=== PATIENT | male | born 1950 ===

== ENCOUNTER 2016-10-31 07:25 | Inpatient (IN) | payer MEDICARE ==
[2016-10-30 09:02] VITALS: BMI 38.3
[2016-10-31] MEDS ORDERED: Neostigmine Methylsulfate 2 MG/2 ML ML IV ONE (07:46)
[2016-10-31] MEDS ORDERED: Lidocaine Hydrochloride 5 ML INJ ONE (07:46)
[2016-10-31] MEDS ORDERED: Midazolam 2 MG/2 ML VIAL ONE (07:46)
[2016-10-31] MEDS ORDERED: Propofol 10 mg/ml Inj (20 ML) ONE (07:46)
[2016-10-31] MEDS ORDERED: Rocuronium 10 mg/ml (5 ml) ONE ×2 (07:47→10:34)
[2016-10-31] MEDS ORDERED: Sodium Chloride 0.9% 20 ML IV ONE (08:21)
[2016-10-31] MEDS ORDERED: Thrombin Topical 5,000 IU Spray Kit ONE (08:22)
[2016-10-31] MEDS ORDERED: Absorbable Gelatin Sponge Size 100 ONE (08:22)
[2016-10-31] MEDS ORDERED: Bacitracin Ointment 30 GM TUBE ONE (08:22)
[2016-10-31 09:12] LABS: BLOOD UREA NITROGEN 13 mg/dl (9-20); CALCIUM 8.3 mg/dL (8.4-10.2); CARBON DIOXIDE 27 mmol/L (22-30); CHLORIDE 107 mmol/L (98-107); GFR AFRICAN-AMERICAN > 60; GLUCOSE,RANDOM 101 mg/dL (75-110); POTASSIUM 4.3 MMOL/L (3.6-5.0); SODIUM 142 mmol/l (132-148); TOTAL PROTEIN 6.2 G/DL (6.3-8.2)
[2016-10-31 09:13] LABS: ALB/GLOB RATIO 1.1 (1.0-2.1); ALKALINE PHOSPHATASE 54 U/L (38-126); ALT/SGPT 14 U/L (21-72); AST/SGOT 16 U/L (17-59); BILIRUBIN,TOTAL 0.4 mg/dl (0.2-1.3)
[2016-10-31] MEDS ORDERED: Lactated Ringer's 1,000 ML IV ONE ×3 (09:47→12:04)
[2016-10-31] MEDS: Bupivacaine 0.5% Inj(30mL) ONE ×3 (09:48→12:49)
[2016-10-31] MEDS ORDERED: ePHEDrine 50 mg/ml Inj ONE (10:11)
[2016-10-31] MEDS: Morphine 1 mg/ml preservative-free Inj(Duramorph) ONE ×2 (10:58→12:49)
[2016-10-31] MEDS: EPINEPHrine 1 mg/ml (1:1000) Inj ONE ×2 (10:58→12:49)
--- NOTE | 2016-10-31 13:19 | PCM.SURG1 ---
Surgeon's Initial Post Op Note - Surgeon's Notes Surgeon: Dr. Phoenix Dog Boarder: Dr. Rivero PGY-1, Jena HASTINGS, Hannah DASILVA Type of Anesthesia: General Mask, Local Anesthesia Administered By: Dr. Sanchez Pre-Operative Diagnosis: left knee osteoarthritis Operative Findings: see dictation Post-Operative Diagnosis: left knee osteoarthritis Operation Performed: left total knee replacement Specimen/Specimens Removed: bone Estimated Blood Loss: EBL {In ML}: 50 Blood Products Given: N/A Drains Used: No Drains Post-Op Condition: Good Date of Surgery/Procedure: 10/31/16 Time of Surgery/Procedure: 09:15
[2016-10-31] MEDS: HYDROmorphone 0.5 mg/0.5 ml ISec IVP PRN ×2 (13:55→14:05)
--- NOTE | 2016-10-31 14:08 | CP.PCM.HP ---
History of Present Illness - History of Present Illness History of Present Illness: 66M MHx of HTN, Asthma, DM, and osteoarthritis admitted after undergoing LEFT TKR. PMH: HTN, Asthma, OA, GERD PSH: LTKR, b/l knee arthroscopy ALL: NKDA Meds: See Med Rec Present on Admission - Present on Admission Any Indicators Present on Admission: No Review of Systems - Review of Systems Review of Systems: as per HPI Past Patient History - Past Medical History & Family History Past Medical History?: Yes - Past Social History Smoking Status: Former Smoker - CARDIAC Hx Cardiac Disorders: Yes Hx Hypercholesterolemia: Yes Hx Hypertension: Yes - PULMONARY Hx Respiratory Disorders: Yes Hx Asthma: Yes - NEUROLOGICAL Hx Neurological Disorder: No - HEENT Hx HEENT Problems: No Other/Comment: SEASONAL ALLERGIES WITH SINUS CONGESTION. - RENAL Hx Chronic Kidney Disease: No - ENDOCRINE/METABOLIC Hx Endocrine Disorders: No - HEMATOLOGICAL/ONCOLOGICAL Hx Blood Disorders: No Hx Blood Transfusions: No - INTEGUMENTARY Hx Dermatological Problems: No - MUSCULOSKELETAL/RHEUMATOLOGICAL Hx Musculoskeletal Disorders: Yes Hx Arthritis: Yes Hx Back Pain: Yes (CERVICAL; LOW BACK) Hx Herniated Disk: Yes ("MAYBE") Hx Osteoarthritis: Yes Hx Rheumatoid Arthritis: Yes Hx Spinal Stenosis: Yes - GASTROINTESTINAL Hx Gastrointestinal Disorders: No Hx Fatty Liver Disease: Yes Hx Gastritis: Yes Hx Gastroesophageal Reflux: Yes - GENITOURINARY/GYNECOLOGICAL Hx Genitourinary Disorders: No - PSYCHIATRIC Hx Emotional Abuse: No Hx Physical Abuse: No - SURGICAL HISTORY Hx Surgeries: Yes Hx Arthroscopy: Yes (bilateral knee athroscopy) Other/Comment: EPIDURALS - ANESTHESIA Hx Anesthesia: Yes Hx Anesthesia Reactions: No Hx Malignant Hyperthermia: No Has any member of the family had a problem w/ anesthesia?: No Meds Allergies/Adverse Reactions: Allergies Allergy/AdvReac Type Severity Reaction Status Date / Time seasonal Allergy SNEEZING Uncoded 10/31/16 08:53 Physical Exam - Constitutional Appears: Well, No Acute Distress - Head Exam Head Exam: ATRAUMATIC, NORMAL INSPECTION - Eye Exam Eye Exam: EOMI, Normal appearance - ENT Exam ENT Exam: Mucous Membranes Moist, Normal Exam - Neck Exam Neck exam: Positive for: Full Rom, Normal Inspection - Respiratory Exam Respiratory Exam: Clear to Auscultation Bilateral, NORMAL BREATHING PATTERN. absent: Rales, Wheezes - Cardiovascular Exam Cardiovascular Exam: REGULAR RHYTHM. absent: JVD - GI/Abdominal Exam GI & Abdominal Exam: Normal Bowel Sounds, Soft. absent: Tenderness - Extremities Exam Extremities exam: Positive for: normal capillary refill, normal inspection, pedal pulses present. Negative for: pedal edema Additional comments: LEFT Demarco wrap toe to thigh; neurovascular intact, sensation intact; - Neurological Exam Neurological exam: Alert, Oriented x3 - Psychiatric Exam Psychiatric exam: Normal Affect, Normal Mood - Skin Skin Exam: Normal Color, Warm Results - Vital Signs Recent Vital Signs: Last Vital Signs Temp 36.3 C L 10/31/16 13:20 Pulse 68 10/31/16 13:35 Resp 18 10/31/16 13:35 BP 120/40 L 10/31/16 13:35 Pulse Ox 99 10/31/16 13:35 - Labs Result Diagrams: 10/31/16 09:00 Labs: Laboratory Results - last 24 hr 10/31/16 10/31/16 10/31/16 08:28 08:51 09:00 Sodium 142 Potassium 4.3 Chloride 107 Carbon Dioxide 27 Anion Gap 13 BUN 13 Creatinine 0.7 L Est GFR ( Amer) > 60 Est GFR (Non-Af Amer) > 60 Random Glucose 101 Calcium 8.3 L Total Bilirubin 0.4 AST 16 L ALT 14 L Alkaline Phosphatase 54 Total Protein 6.2 L Albumin 3.3 L Globulin 2.9 Albumin/Globulin Ratio 1.1 Blood Type O POSITIVE Blood Type Confirm O POSITIVE Antibody Screen Negative BBK History Checked No verified bt Assessment & Plan (1) Status post total left knee replacement Assessment and Plan: Management as per Orthopedics. - Pain mgmnt as ordered - CPM - PT/OT Status: Acute (2) DVT prophylaxis Assessment and Plan: As per orthopedic team 325mg, PO, BID Status: Acute (3) HTN (hypertension) Assessment and Plan: Controlled, c/w medications Status: Chronic (4) Asthma Assessment and Plan: Controlled, c/w home medications Status: Chronic (5) Diabetes Assessment and Plan: Controlled by diet Status: Chronic
--- NOTE | 2016-10-31 15:17 | RAD ---
PROCEDURE: Left Knee Radiographs. She HISTORY: Status post left TKA COMPARISON: Preoperative study 08/01/2016 FINDINGS: BONES: Satisfactory postoperative status. Femoral and tibial components of the left TKR in satisfactory position OTHER FINDINGS: None. IMPRESSION: Satisfactory postoperative status.
--- NOTE | 2016-10-31 19:03 | OP ---
PROCEDURE DATE: 10/31/2016 PROCEDURE DATE: 10/31/2016 ATTENDING SURGEON: Jerri Phoenix MD WOOD DOWEL MACHINE OPERATOR: Jena Kendrick PA-C PREOPERATIVE DIAGNOSIS: Left knee advanced osteoarthritis. POSTOPERATIVE DIAGNOSIS: Left knee advanced osteoarthritis. PROCEDURE: Left total knee replacement. IMPLANTS SIZE: Ex[employer] size 4 stemmed femur, size 3 tibial baseplate with a stem, 15 mm CCK constraint polyethylene insert, 29 mm patella button. ANESTHESIA TYPE: General. ESTIMATED BLOOD LOSS: 50 mL. COMPLICATIONS: None. HISTORY: Patient with prolonged history of left knee pain progressively getting worse despite extensive conservative management, which included activity modification, injections, anti-inflammatory modification and physical therapy. X-rays had revealed advanced arthritis. Patient was indicated for total knee replacement due to continued pain and limited mobility. I had a detailed discussion with the patient in the office explaining the nature of the surgery, alternatives of surgery, risks and benefits, rehabilitation protocol and surgical markings. Risks of surgery include but not limited to continued pain, lack of motion, infection, vascular injury, DVT/PE, nerve injury including peroneal nerve dysfunction, reflex sympathetic dystrophy, compartment syndrome, unforeseen medical and/or anesthesia complications, limb loss, and even . The patient expressed an understanding of the risks and possible benefits of the procedure, and is also aware of the alternatives to surgery. PROCEDURE: On the day of the surgery, the patient was admitted to pre-operative holding area. A laterality sheet was completed confirming the correct operative site. The correct surgical knee was marked in the holding area and informed consent was signed from the patient. Once again, I reviewed the risks and benefits of the surgery with the patient in detail. These risks include but are not limited to continued pain, lack of motion, infection, vascular injury, DVT/PE, nerve injury including peroneal nerve dysfunction, reflex sympathetic dystrophy , symptomatic hardware, need for further procedure and surgeries, instability, iatrogenic fractures, compartment syndrome, unforeseen medical and/or anesthesia complications, limb loss, and even . The patient expressed an understanding of the risks and possible benefits of the procedure, also aware of the alternatives to surgery and signed the informed consent. The patient was transported to the operating room and placed in the supine position, general anesthesia was obtained Exam Under Anesthesia revealed 10 degrees of varus that was only slightly correctable. Range of motion is from -2 to 110. Also grade II laxity of the LCL. A padded tourniquet was applied to patient's operative thigh and appropriate prophylactic antibiotics were given. The operative leg was draped and prepped in standard sterile manner. Timeout was completed, confirming patient's left knee to be the correct operative site. Using an Esmarch, the extremity was exsanguinated and tourniquet was inflated to 350 mmHg. The surgical incision markings were made using patella border, tibial tubercle, patella and quadriceps tendon. Using a 10 blade, a midline incision was made. Skin dissection was taken until the prepatellar fascia was identified and the corners of the patellar tendon were marked for proper closure at the end of the procedure. Using a fresh 10 blade, a medial parapatellar arthrotomy was performed. The knee was exposed in the standard manner. The deep MCL was elevated for exposure, medial and lateral menisci were removed, ACL and PCL were also transected. The tibia was subluxed anteriorly. Planned tibial cut was made with power saw, using extra-medullary guide, perpendicular to mechanical axis of the tibia. After the cut was made, the alignment was also checked and was found to be appropriate. Next, the knee was placed into 90 degrees of flexion. A drill hole was made within the femoral notch anterior to PCL insertion for placement of intramedullary femoral randal. Intramedullary femoral randal was inserted within the femoral canal and planned distal femoral cut was made. After the cut, knee was brought into full extension. Spacer blocks were used to check the extension balancing both in full extension and 30 degrees of flexion. It was found that 15 mm trial spacer block allowed full extension with symmetric varus and valgus balancing. Next we proceed with Patella resurfacing. Patella width was found to [place] Patella width was 28 mm. Using the free-hand technique the arthritic patella surface was resected. Patella was sized using the guide and it was noted that Patella button size 29 mm Patella dome button would be appropriate for the patient. Paragraph 6: Next the size of femoral component was determined using the posterior referencing guide. It was noted that a size 4 femur would be appropriate for this patient without causing any significant notching. A 4 x 1 cutting block was placed and flexion gap balancing was checked. The flexion gap was found to be symmetric to the extension gap. Anterior and posterior condyle, anterior and posterior chamfer cuts were made. Next, appropriate size box cut for femoral component was prepared using the guide. The femoral trial component was impacted onto the distal femur. Appropriate size tibial trial component was also placed on the cut surface of the tibia. Using the drill and punch, keel for tibial implant was prepared. Trial tibial tray was secured onto the tibia using pins. Different size trial polyethylene inserts were secured on to the trial tibial tray to critically assess the following parameters: Full range of motion, extension and flexion gap balancing , mid-flexion stability, anterior and posterior drawer, and patellar tracking. All parameter were found to be satisfactory with 15 mm constrained polyethylene insert. All the trial components were removed. Implants were opened on the back table. Cement was mixed and we proceed with cement fixation of the implants. Tibial tray, femoral component and patellar dome button were secured with cement. Polyethylene insert was secured onto the tibial tray using locking mechanism. The knee was reduced and brought into full extension. Cement was allowed to harden until final component fixation. Knee was taken through the final range of motion for stability testing, and found to be satisfactory. 60 mL of custom cocktail mixture was injected into posterior capsule, MCL, LCL, quadriceps tendon, and patellar tendon. Wound was copiously irrigated with sterile antibiotic solution using pulse lavage. Arthrotomy was closed using heavy suture and wound was closed in standard manner. Patient was extubated, transferred to stretcher and taken to the recovery room. Post-operative instructions were provided, physical therapy consult was requested along with DVT prophylaxis and appropriate pain medications. During this procedure, I was assisted by Jena Kendrick PA-C, who assisted in positioning the patient on the operating room table as well as transferring the patient from the operating room table to the recovery room stretcher. In addition, Jena Kendrick PA-C assisted me during the actual operative procedure by positioning, protecting critical neurovascular structures, exposure of the joint, and proper positioning of the implants. The presence of VENKATA Oakes as my operative land surveyor assistant was medically necessary to ensure the utmost safety of the patient in the pre, intra-, and post-operative periods. Jerri Phoenix MD cc: [id number] TT: 10/31/2016 19:02:47 jody CORRAL
[2016-10-31] MEDS ORDERED: Pneumococcal 23-Valent Vaccine IM ONE (19:49)
[2016-10-31] MEDS: Oxycodone/Acetaminophen 5/325 mg Tab PO PRN (20:11)
[2016-10-31] MEDS: Aspirin 325 mg EC Tablets PO SCH (20:54)
[2016-10-31] MEDS: ceFAZolin 1 GM in Sodium Chloride 0.9% 100 ML IVPB SCH (20:55)
[2016-10-31] MEDS: oxyCODONE 10 mg ER Tab (oxyCONTIN) PO SCH (20:59)
[2016-11-01] MEDS: Lactated Ringer's 1,000 ML IV SCH ×3 (00:30→20:50)
[2016-11-01 07:32] LABS: BASO % 0.5 % (0.0-2.0); EOS # 0.1 K/uL (0.0-0.7); EOS % 1.7 % (0.0-4.0); HEMATOCRIT 33.9 % (35.0-51.0); LYMPH # 1.2 K/uL (1.0-4.3); LYMPH % 18.8 % (20.0-40.0); MEAN CELL VOLUME 90.4 fl (80.0-94.0); MEAN CORPUSCULAR HEMOGLOBIN 30.7 pg (27.0-31.0); MEAN PLATELET VOLUME 8.6 fl (7.2-11.7); MONO # 0.9 K/uL (0.0-0.8); MONO % 14.1 % (0.0-10.0); NEUT # 4.1 K/uL (1.8-7.0); NEUT % 64.9 % (50.0-75.0); NRBC % 0.1 % (0.0-0.0); RED CELL DISTRIBUTION WIDTH 14.3 % (11.5-14.5); WHITE BLOOD COUNT 6.3 K/uL (4.8-10.8)
[2016-11-01] MEDS: ceFAZolin 1 GM in Sodium Chloride 0.9% 100 ML IVPB SCH ×2 (08:49→20:48)
[2016-11-01] MEDS: Aspirin 325 mg EC Tablets PO SCH ×2 (08:50→18:16)
[2016-11-01] MEDS: Magnesium Oxide 400 mg Tab UD PO SCH (08:52)
[2016-11-01] MEDS: oxyCODONE 10 mg ER Tab (oxyCONTIN) PO SCH ×2 (08:58→20:25)
[2016-11-01] MEDS ORDERED: MELOXICAM 15 MG PO SCH (09:00)
--- NOTE | 2016-11-01 09:01 | CP.PCM.PN ---
Subjective - Date & Time of Evaluation Date of Evaluation: 11/01/16 Time of Evaluation: 07:00 - Subjective Subjective: 66M seen and examined at bedside with attending. Pt has no acute complaints, pain is well controlled. He denies SOB, chest pain. Objective - Vital Signs/Intake and Output Vital Signs (last 24 hours): Temp Pulse Resp BP Pulse Ox 36.8 C 87 20 123/76 97 11/01/16 07:45 11/01/16 07:45 11/01/16 07:45 11/01/16 07:45 11/01/16 07:45 - Medications Medications: Current Medications Amlodipine Besylate (Norvasc) 10 mg PO HS [facility] Last Admin: 10/31/16 21:04 Dose: 10 mg Aspirin (Ecotrin) 325 mg PO DAILY [facility] Last Admin: 10/31/16 20:54 Dose: 325 mg Atenolol (Tenormin) 25 mg PO HS [facility] Last Admin: 10/31/16 21:04 Dose: 25 mg Celecoxib (Celebrex) 100 mg PO Q12 [facility] Last Admin: 10/31/16 20:54 Dose: 100 mg Famotidine (Pepcid) 20 mg PO BID [facility] Last Admin: 10/31/16 17:50 Dose: 20 mg Fluticasone Propionate (Flonase) 2 spr OJ HS [facility] Last Admin: 10/31/16 21:01 Dose: 2 spr Folic Acid (Folic Acid) 1 mg PO DAILY [facility] Lactated Ringer's (Lactated Ringer's) 1,000 mls @ 100 mls/hr IV .Q10H [facility] Last Admin: 11/01/16 00:30 Dose: 100 mls/hr Cefazolin Sodium 1 gm/ Sodium (Chloride) 100 mls @ 100 mls/hr IVPB Q12 [facility] Stop: 11/01/16 21:00 Last Admin: 10/31/16 20:55 Dose: 100 mls/hr Ketorolac Tromethamine (Toradol) 15 mg IVP Q8 [facility] Stop: 11/02/16 18:01 Last Admin: 11/01/16 00:31 Dose: 15 mg Loratadine (Claritin) 10 mg PO HS [facility] Last Admin: 10/31/16 21:00 Dose: 10 mg Magnesium Oxide (Mag-Ox) 400 mg PO DAILY [facility] Montelukast Sodium (Singulair) 10 mg PO HS [facility] Last Admin: 10/31/16 21:00 Dose: 10 mg Morphine Sulfate (Morphine) 2 mg IVP Q4 PRN PRN Reason: Pain, severe (8-10) Ondansetron HCl (Zofran Inj) 4 mg IVP Q6 PRN PRN Reason: Nausea/Vomiting Oxycodone HCl (Oxycontin Extended Release Tab) 10 mg PO Q12 [facility] Stop: 11/03/16 21:01 Last Admin: 10/31/16 20:59 Dose: 10 mg Oxycodone/Acetaminophen (Percocet 5/325 Mg Tab) 2 tab PO Q4 PRN PRN Reason: Pain, severe (8-10) Stop: 11/06/16 13:51 Last Admin: 10/31/16 20:11 Dose: 2 tab Valsartan (Diovan) 80 mg PO DAILY [facility] - Labs Labs: 11/01/16 07:00 10/31/16 09:00 - Constitutional Appears: Well, No Acute Distress - Head Exam Head Exam: ATRAUMATIC, NORMAL INSPECTION - Eye Exam Eye Exam: EOMI, Normal appearance - ENT Exam ENT Exam: Mucous Membranes Moist, Normal Exam - Neck Exam Neck Exam: Full ROM, Normal Inspection - Respiratory Exam Respiratory Exam: Clear to Ausculation Bilateral, NORMAL BREATHING PATTERN. absent: Rales, Wheezes - Cardiovascular Exam Cardiovascular Exam: REGULAR RHYTHM. absent: JVD - GI/Abdominal Exam GI & Abdominal Exam: Soft, Normal Bowel Sounds. absent: Tenderness - Extremities Exam Extremities Exam: Full ROM, Normal Capillary Refill. absent: Pedal Edema Additional comments: LEFT Demarco wrap toe to thigh; neurovascular intact, sensation intact; - Neurological Exam Neurological Exam: Alert, Awake, Oriented x3 - Psychiatric Exam Psychiatric exam: Normal Affect, Normal Mood - Skin Skin Exam: Normal Color, Warm Assessment and Plan (1) Status post total left knee replacement Assessment & Plan: Management as per Orthopedics. - Pain mgmnt as ordered - CPM - PT/OT Status: Acute (2) DVT prophylaxis Assessment & Plan: As per orthopedic team 325mg, PO, BID - Added SCD RLE Status: Acute (3) HTN (hypertension) Assessment & Plan: Controlled, c/w medications Status: Chronic (4) Asthma Assessment & Plan: Controlled, c/w home medications Status: Chronic (5) Diabetes Assessment & Plan: Controlled by diet Status: Chronic
--- NOTE | 2016-11-01 09:16 | CP.PCM.PN ---
Subjective - Date & Time of Evaluation Date of Evaluation: 11/01/16 Time of Evaluation: 07:00 - Subjective Subjective: S/P LTKR POD#1 Pt seen and examined at bedside, comfortable in bed Pt c/o mild left knee pain and constipation Pt denies any SOB, chest pain, N/V/D, numbness/tingling LLE Objective - Vital Signs/Intake and Output Vital Signs (last 24 hours): Temp Pulse Resp BP Pulse Ox 98.2 F 87 20 123/76 97 11/01/16 07:45 11/01/16 07:45 11/01/16 07:45 11/01/16 07:45 11/01/16 07:45 - Medications Medications: Current Medications Amlodipine Besylate (Norvasc) 10 mg PO HS [facility] Last Admin: 10/31/16 21:04 Dose: 10 mg Aspirin (Ecotrin) 325 mg PO DAILY [facility] Last Admin: 11/01/16 08:50 Dose: 325 mg Atenolol (Tenormin) 25 mg PO HS [facility] Last Admin: 10/31/16 21:04 Dose: 25 mg Celecoxib (Celebrex) 100 mg PO Q12 [facility] Last Admin: 11/01/16 08:50 Dose: 100 mg Docusate Sodium (Colace) 100 mg PO BID [facility] Famotidine (Pepcid) 20 mg PO BID [facility] Last Admin: 11/01/16 08:50 Dose: 20 mg Fluticasone Propionate (Flonase) 2 spr OJ HS [facility] Last Admin: 10/31/16 21:01 Dose: 2 spr Folic Acid (Folic Acid) 1 mg PO DAILY [facility] Last Admin: 11/01/16 08:51 Dose: 1 mg Lactated Ringer's (Lactated Ringer's) 1,000 mls @ 100 mls/hr IV .Q10H [facility] Last Admin: 11/01/16 00:30 Dose: 100 mls/hr Cefazolin Sodium 1 gm/ Sodium (Chloride) 100 mls @ 100 mls/hr IVPB Q12 [facility] Stop: 11/01/16 21:00 Last Admin: 11/01/16 08:49 Dose: 100 mls/hr Ketorolac Tromethamine (Toradol) 15 mg IVP Q8 [facility] Stop: 11/02/16 18:01 Last Admin: 11/01/16 08:53 Dose: 15 mg Loratadine (Claritin) 10 mg PO HS [facility] Last Admin: 10/31/16 21:00 Dose: 10 mg Magnesium Oxide (Mag-Ox) 400 mg PO DAILY [facility] Last Admin: 11/01/16 08:52 Dose: 400 mg Montelukast Sodium (Singulair) 10 mg PO HS [facility] Last Admin: 10/31/16 21:00 Dose: 10 mg Morphine Sulfate (Morphine) 2 mg IVP Q4 PRN PRN Reason: Pain, severe (8-10) Ondansetron HCl (Zofran Inj) 4 mg IVP Q6 PRN PRN Reason: Nausea/Vomiting Oxycodone HCl (Oxycontin Extended Release Tab) 10 mg PO Q12 [facility] Stop: 11/03/16 21:01 Last Admin: 11/01/16 08:58 Dose: 10 mg Oxycodone/Acetaminophen (Percocet 5/325 Mg Tab) 2 tab PO Q4 PRN PRN Reason: Pain, severe (8-10) Stop: 11/06/16 13:51 Last Admin: 10/31/16 20:11 Dose: 2 tab Valsartan (Diovan) 80 mg PO DAILY [facility] Last Admin: 11/01/16 08:53 Dose: 80 mg - Labs Labs: 11/01/16 07:00 10/31/16 09:00 - Extremities Exam Additional comments: LLE: knee dressing C/D/I Calves soft and nontender b/l N/V intact Normal ROM at ankle Distal pulses wnl Assessment and Plan - Assessment and Plan (Free Text) Assessment: S/P LTKR POD#1 Pain control PT/OT DVT ppx- aspirin 325mg bid Incentive Spirometer Colace for constipation Continue current management
[2016-11-01] MEDS: Oxycodone/Acetaminophen 5/325 mg Tab PO PRN (12:06)
[2016-11-01 21:17] VITALS: RESP 18
[2016-11-02] MEDS: Oxycodone/Acetaminophen 5/325 mg Tab PO PRN ×2 (01:19→14:17)
[2016-11-02] MEDS: Lactated Ringer's 1,000 ML IV SCH ×2 (05:45→16:00)
[2016-11-02 07:18] LABS: HEMATOCRIT 34.9 % (35.0-51.0); MEAN CELL VOLUME 91.2 fl (80.0-94.0); RED CELL DISTRIBUTION WIDTH 14.5 % (11.5-14.5); WHITE BLOOD COUNT 9.9 K/uL (4.8-10.8)
[2016-11-02 07:21] LABS: BLOOD UREA NITROGEN 12 mg/dl (9-20); CALCIUM 7.9 mg/dL (8.4-10.2); CARBON DIOXIDE 24 mmol/L (22-30); CHLORIDE 104 mmol/L (98-107); GFR AFRICAN-AMERICAN > 60; GLUCOSE,RANDOM 118 mg/dL (75-110); SODIUM 139 mmol/l (132-148)
[2016-11-02 08:36] VITALS: BP 134/86; PULSE 71; TEMP 98.1; O2SAT 96
[2016-11-02] MEDS: oxyCODONE 10 mg ER Tab (oxyCONTIN) PO SCH (08:44)
[2016-11-02] MEDS: Aspirin 325 mg EC Tablets PO SCH (08:45)
[2016-11-02] MEDS: Magnesium Oxide 400 mg Tab UD PO SCH (08:45)
--- NOTE | 2016-11-02 09:40 | CP.PCM.DIS ---
Provider - Provider Date of Admission: 10/31/16 13:31 Attending physician: Adolph Jane MD Primary care physician: Yung Yin MD Time Spent in preparation of Discharge (in minutes): 45 Diagnosis - Discharge Diagnosis (1) Status post total left knee replacement Status: Acute Comment: POD#2, stable for transfer to TCU (2) DVT prophylaxis Status: Acute Comment: c/w ASA 325mg, PO, BID (3) HTN (hypertension) Status: Chronic Comment: Stable, c/w home medications (4) Asthma Status: Chronic Comment: Stable, c/w home medications (5) Diabetes Status: Chronic Comment: Stable, c/w diet controlled. Hospital Course - Lab Results Lab Results: Most Recent Lab Values WBC 9.9 K/uL (4.8-10.8) D 11/02/16 06:25 RBC 3.83 Mil/uL (4.40-5.90) L 11/02/16 06:25 Hgb 11.5 g/dL (12.0-18.0) L 11/02/16 06:25 Hct 34.9 % (35.0-51.0) L 11/02/16 06:25 MCV 91.2 fl (80.0-94.0) 11/02/16 06:25 MCH 30.0 pg (27.0-31.0) 11/02/16 06:25 MCHC 33.0 g/dL (33.0-37.0) 11/02/16 06:25 RDW 14.5 % (11.5-14.5) 11/02/16 06:25 Plt Count 193 K/uL (130-400) 11/02/16 06:25 MPV 8.6 fl (7.2-11.7) 11/01/16 07:00 Neut % (Auto) 64.9 % (50.0-75.0) 11/01/16 07:00 Lymph % (Auto) 18.8 % (20.0-40.0) L 11/01/16 07:00 Logan % (Auto) 14.1 % (0.0-10.0) H 11/01/16 07:00 Eos % (Auto) 1.7 % (0.0-4.0) 11/01/16 07:00 Baso % (Auto) 0.5 % (0.0-2.0) 11/01/16 07:00 Neut # 4.1 K/uL (1.8-7.0) 11/01/16 07:00 Lymph # 1.2 K/uL (1.0-4.3) 11/01/16 07:00 Logan # 0.9 K/uL (0.0-0.8) H 11/01/16 07:00 Eos # 0.1 K/uL (0.0-0.7) 11/01/16 07:00 Baso # 0.0 K/uL (0.0-0.2) 11/01/16 07:00 Sodium 139 mmol/l (132-148) 11/02/16 06:25 Potassium 4.0 MMOL/L (3.6-5.0) 11/02/16 06:25 Chloride 104 mmol/L (98-107) 11/02/16 06:25 Carbon Dioxide 24 mmol/L (22-30) 11/02/16 06:25 Anion Gap 15 (10-20) 11/02/16 06:25 BUN 12 mg/dl (9-20) 11/02/16 06:25 Creatinine 0.8 mg/dL (0.8-1.5) 11/02/16 06:25 Est GFR ( Amer) > 60 11/02/16 06:25 Est GFR (Non-Af Amer) > 60 11/02/16 06:25 Random Glucose 118 mg/dL (75-110) H 11/02/16 06:25 Calcium 7.9 mg/dL (8.4-10.2) L 11/02/16 06:25 Total Bilirubin 0.4 mg/dl (0.2-1.3) 10/31/16 09:00 AST 16 U/L (17-59) L 10/31/16 09:00 ALT 14 U/L (21-72) L 10/31/16 09:00 Alkaline Phosphatase 54 U/L (38-126) 10/31/16 09:00 Total Protein 6.2 G/DL (6.3-8.2) L 10/31/16 09:00 Albumin 3.3 g/dL (3.5-5.0) L 10/31/16 09:00 Globulin 2.9 gm/dL (2.2-3.9) 10/31/16 09:00 Albumin/Globulin Ratio 1.1 (1.0-2.1) 10/31/16 09:00 Blood Type O POSITIVE 10/31/16 08:28 Blood Type Confirm O POSITIVE 10/31/16 08:51 Antibody Screen Negative 10/31/16 08:28 BBK History Checked No verified bt 10/31/16 08:28 - Hospital Course Hospital Course: POD#2 s/p LEFT TKR, doing well. He is eating, BM this AM, and pain controlled. PT cleared for TCU and accepted. Chronic medical conditions are stable on home medications and should be continued in TCU. Discharge Exam - Head Exam Head Exam: ATRAUMATIC, NORMAL INSPECTION - Eye Exam Eye Exam: EOMI, Normal appearance - ENT Exam ENT Exam: Mucous Membranes Moist, Normal Exam - Neck Exam Neck exam: Full Rom, Normal Inspection - Respiratory Exam Respiratory Exam: Clear to PA & Lateral, NORMAL BREATHING PATTERN. absent: Rales, Wheezes - Cardiovascular Exam Cardiovascular Exam: REGULAR RHYTHM. absent: JVD - GI/Abdominal Exam GI & Abdominal Exam: Normal Bowel Sounds, Soft. absent: Tenderness - Extremities Exam Extremities exam: normal capillary refill, normal inspection, pedal pulses present Additional comments: LEFT Demarco wrap toe to thigh; neurovascular intact, sensation intact - Neurological Exam Neurological exam: Alert, Oriented x3 - Psychiatric Exam Psychiatric exam: Normal Affect, Normal Mood - Skin Skin Exam: Normal Color, Warm Discharge Plan - Follow Up Plan Condition: GOOD Disposition: HOME/ ROUTINE Patient education suggested?: Yes Instructions: Joint Replacement Surgery (DC) Referrals: Yung Yin MD [Primary Care Provider] - Jerri Phoenix MD [Staff Provider] -
--- NOTE | 2016-11-02 11:29 | CP.PCM.PN ---
Subjective - Date & Time of Evaluation Date of Evaluation: 11/02/16 Time of Evaluation: 11:27 - Subjective Subjective: 66 y/o male seen at bedside S/P LTKR POD#2. Patient resting comfortably in NAD and AAOx3. Pt c/o mild left knee pain and constipation. Pt denies any SOB, chest pain, N/V/D, numbness/tingling LLE Objective - Vital Signs/Intake and Output Vital Signs (last 24 hours): Temp Pulse Resp BP Pulse Ox 98.1 F 71 18 134/86 96 11/02/16 08:35 11/02/16 08:35 11/02/16 08:35 11/02/16 08:35 11/02/16 08:35 - Medications Medications: Current Medications Amlodipine Besylate (Norvasc) 10 mg PO HS [facility] Last Admin: 11/01/16 21:36 Dose: 10 mg Aspirin (Ecotrin) 325 mg PO BID [facility] Last Admin: 11/02/16 08:45 Dose: 325 mg Atenolol (Tenormin) 25 mg PO HS [facility] Last Admin: 11/01/16 21:35 Dose: 25 mg Celecoxib (Celebrex) 100 mg PO Q12 [facility] Last Admin: 11/02/16 08:46 Dose: 100 mg Docusate Sodium (Colace) 100 mg PO BID [facility] Last Admin: 11/02/16 08:45 Dose: 100 mg Famotidine (Pepcid) 20 mg PO BID [facility] Last Admin: 11/02/16 08:45 Dose: 20 mg Fluticasone Propionate (Flonase) 2 spr OJ HS [facility] Last Admin: 11/01/16 21:34 Dose: 2 spr Folic Acid (Folic Acid) 1 mg PO DAILY [facility] Last Admin: 11/02/16 08:45 Dose: 1 mg Lactated Ringer's (Lactated Ringer's) 1,000 mls @ 100 mls/hr IV .Q10H [facility] Last Admin: 11/02/16 05:45 Dose: Not Given Ketorolac Tromethamine (Toradol) 15 mg IVP Q8 [facility] Stop: 11/02/16 18:01 Last Admin: 11/02/16 10:42 Dose: Not Given Loratadine (Claritin) 10 mg PO HS [facility] Last Admin: 11/01/16 21:35 Dose: 10 mg Magnesium Oxide (Mag-Ox) 400 mg PO DAILY [facility] Last Admin: 11/02/16 08:45 Dose: 400 mg Montelukast Sodium (Singulair) 10 mg PO HS [facility] Last Admin: 11/01/16 21:35 Dose: 10 mg Morphine Sulfate (Morphine) 2 mg IVP Q4 PRN PRN Reason: Pain, severe (8-10) Ondansetron HCl (Zofran Inj) 4 mg IVP Q6 PRN PRN Reason: Nausea/Vomiting Oxycodone HCl (Oxycontin Extended Release Tab) 10 mg PO Q12 [facility] Stop: 11/03/16 21:01 Last Admin: 11/02/16 08:44 Dose: 10 mg Oxycodone/Acetaminophen (Percocet 5/325 Mg Tab) 2 tab PO Q4 PRN PRN Reason: Pain, severe (8-10) Stop: 11/06/16 13:51 Last Admin: 11/02/16 01:19 Dose: 2 tab Valsartan (Diovan) 80 mg PO DAILY [facility] Last Admin: 11/02/16 08:45 Dose: 80 mg - Labs Labs: 11/02/16 06:25 11/02/16 06:25 - Constitutional Appears: Well, Non-toxic, No Acute Distress - Extremities Exam Additional comments: LLE: knee dressing C/D/I serous filled bulla formation medial to surgical incision site, roof intact, no drainage, no malodor Calves soft and nontender b/l N/V intact Normal ROM at ankle Distal pulses wnl - Neurological Exam Neurological Exam: Alert, Awake, Oriented x3 - Psychiatric Exam Psychiatric exam: Normal Affect, Normal Mood Assessment and Plan - Assessment and Plan (Free Text) Assessment: 66 y/o male seen at bedside 2 days s/p left TKR Plan: patient evaluated and chart reviewed discussed in detail with attending Dr. Phoenix labs and vitals reviewed; afebrile, WBC 9.9 applied new aquacel dressing to LLE serous blister drained, roof remains intact, applied silvadene, telfa, 4x4 gauze , margarita c/w Pain control c/w PT/OT DVT ppx- aspirin 325mg bid Incentive Spirometer Colace for constipation Continue current management
[2016-11-02] MEDS ORDERED: ceFAZolin 1 GM in Sodium Chloride 0.9% 100 ML IVPB SCH (12:45)
[2016-11-02] MEDS ORDERED: Lactobacillus Acidophilus 500 MU Cap PO SCH (17:00)
[2016-11-02] MEDS ORDERED: Silver Sulfadiazine 1% Cream (20 gm) TOP SCH (17:00)
== END 2016-11-02 16:19 | DRG 470 ==
LOC: H.OPSURG 07:25 → H.MEDSURG1 13:31
PROVIDERS: ADMIT Family Medicine; ATTEND Family Medicine
PROC: 3E0234Z Introduction of Serum, Toxoid and Vaccine into Muscle, Percutaneous Approach (ICD-10-PCS; 2016-10-31)
PROC: 0SRD0J9 Replacement of Left Knee Joint with Synthetic Substitute, Cemented, Open Approach (ICD-10-PCS; principal; 2016-10-31 10:15)
DX: M17.12 Unilateral primary osteoarthritis, left knee (principal); I10 Essential (primary) hypertension; E11.9 Type 2 diabetes mellitus without complications; Z23 Encounter for immunization; J45.909 Unspecified asthma, uncomplicated; K59.00 Constipation, unspecified; K21.9 Gastro-esophageal reflux disease without esophagitis; Z87.891 Personal history of nicotine dependence